=== PATIENT | female | born 1990 ===

== ENCOUNTER 2017-04-16 22:38 | Outpatient (CLI) | payer OTHER | END 2017-04-17 15:00 | disposition home or self-care (01) | LOC: OBS/DEL 22:38 | DX: O60.02 Preterm labor without delivery, second trimester (principal); Z34.02 Encounter for supervision of normal first pregnancy, second trimester ==

== ENCOUNTER 2017-05-27 12:44 | Outpatient (CLI) | payer OTHER | END 2017-05-27 13:52 | disposition home or self-care (01) | LOC: NST 12:44 | DX: Z34.03 Encounter for supervision of normal first pregnancy, third trimester (principal) ==

== ENCOUNTER 2017-06-24 12:11 | Outpatient (CLI) | payer OTHER | END 2017-06-24 13:33 | disposition home or self-care (01) | LOC: NST 12:11 | DX: Z34.83 Encounter for supervision of other normal pregnancy, third trimester (principal); Z3A.35 35 weeks gestation of pregnancy ==

== ENCOUNTER 2017-07-01 13:26 | Outpatient (CLI) | payer OTHER | END 2017-07-01 13:45 | disposition home or self-care (01) | LOC: NST 13:26 | DX: Z34.03 Encounter for supervision of normal first pregnancy, third trimester (principal) ==

== ENCOUNTER 2017-07-05 14:15 | Inpatient (IN) | payer OTHER ==
[~2017-07-05] VITALS: Ht 160 cm; Wt 71.2 kg
[2017-07-14] MEDS ORDERED: PRENATAL TABLE1 EAC3 PO (09:52)
== END 2017-07-16 12:08 | disposition home or self-care (01) | DRG 775 ==
LOC: LDR 07-14 05:18 → OB/GYN 07-14 15:28
PROC: 10E0XZZ Delivery of Products of Conception, External Approach (ICD-10-PCS; principal; 2017-07-14)
PROC: 0UQGXZZ Repair Vagina, External Approach (ICD-10-PCS; 2017-07-14)
PROC: 3E033VJ Introduction of Other Hormone into Peripheral Vein, Percutaneous Approach (ICD-10-PCS; 2017-07-14)
PROC: 4A1HXCZ Monitoring of Products of Conception, Cardiac Rate, External Approach (ICD-10-PCS; 2017-07-14)
DX: O71.4 Obstetric high vaginal laceration alone (principal); Z3A.37 37 weeks gestation of pregnancy; Z37.0 Single live birth

== ENCOUNTER 2017-07-05 15:28 | Outpatient (CLI) | payer OTHER | END 2017-07-05 16:37 | disposition home or self-care (01) | LOC: NST 15:28 | DX: Z34.83 Encounter for supervision of other normal pregnancy, third trimester (principal) ==

== ENCOUNTER 2017-07-09 11:09 | Outpatient (CLI) | payer OTHER | END 2017-07-09 11:59 | disposition home or self-care (01) | LOC: NST 11:09 | DX: Z34.03 Encounter for supervision of normal first pregnancy, third trimester (principal) ==

== ENCOUNTER 2017-07-12 07:07 | Outpatient (CLI) | payer OTHER | END 2017-07-12 09:49 | disposition home or self-care (01) | LOC: NST 07:07 | DX: Z34.83 Encounter for supervision of other normal pregnancy, third trimester (principal) ==